=== PATIENT | female | born 1980 | race African-American/Black ===

== ENCOUNTER 2017-03-22 13:38 | Emergency (ER) | payer OTHER ==
[~2017-03-22] VITALS: Ht 152.4 cm; Wt 81.7 kg
[2017-03-22 14:09] LABS: URINE BILIRUBIN NEGATIVE (Negative); URINE BLOOD 3+ (Negative); URINE COLOR YELLOW; URINE GLUCOSE-RANDOM* NEGATIVE (Negative); URINE KETONES NEGATIVE (Negative); URINE NITRITE NEGATIVE (Negative); URINE PROTEIN (DIPSTICK) TRACE (Negative); URINE SPECIFIC GRAVITY >= 1.030 (1.003-1.035); URINE UROBILINOGEN 0.2 E.U./dl (0.2-1.0)
[2017-03-22 14:14] LABS: BACTERIA >30 Many /HPF (None Seen); SQUAMOUS >10 Many /LPF (0-3); URINE RBC >20 Many /HPF (0-2); URINE WBC 6-15 Few /HPF (0-5)
[2017-03-22 14:15] LABS: CASTS None Seen /LPF (None Seen); CRYSTALS None Seen /LPF (None Seen)
[2017-03-22] MEDS ORDERED: CIPRO500 MG PO (14:50)
[2017-03-22] MEDS ORDERED: MOBIC7.5 MG PO (16:21)
[2017-03-22] MEDS ORDERED: PHENAZOPYRIDIN200 M2 PO (16:21)
[2017-03-22 16:41] VITALS: BP 129/73
== END 2017-03-22 16:41 | disposition home or self-care (01) ==
LOC: ER 13:38
PROVIDERS: Nurse Practitioner Family
DX: D25.9 Leiomyoma of uterus, unspecified (principal); N39.0 Urinary tract infection, site not specified; N32.89 Other specified disorders of bladder

== ENCOUNTER 2017-08-01 02:00 | Emergency (ER) | payer OTHER ==
[~2017-08-01] VITALS: Ht 152.4 cm; Wt 92.1 kg
[~2017-08-01 02:00] MED LIST: CIPRO500 MG PO; MOBIC7.5 MG PO; PHENAZOPYRIDIN200 M2 PO
[2017-08-01] MEDS ORDERED: PRENATAL PO (02:20)
[2017-08-01 02:26] LABS: URINE BILIRUBIN NEGATIVE (Negative); URINE BLOOD NEGATIVE (Negative); URINE COLOR YELLOW; URINE GLUCOSE-RANDOM* NEGATIVE (Negative); URINE KETONES NEGATIVE (Negative); URINE NITRITE NEGATIVE (Negative); URINE PROTEIN (DIPSTICK) NEGATIVE (Negative); URINE SPECIFIC GRAVITY 1.015 (1.003-1.035); URINE UROBILINOGEN 0.2 E.U./dl (0.2-1.0)
[2017-08-01 02:37] LABS: HEMATOCRIT 32.3 % (37.0-47.0); HEMOGLOBIN 9.9 gm/dL (12.0-15.0); MCHC 30.7 g/dL (28.0-37.0); MCV 74.8 fL (80.0-100.0); PLATELET COUNT 319 thou/uL (150-400); RBC 4.32 mil/uL (4.20-5.00); RDW 20.1 % (10.5-14.5)
[2017-08-01 02:41] LABS: MANUAL DIFF YES; POTASSIUM 3.9 mmol/L (3.5-5.1)
[2017-08-01 02:47] LABS: CALCIUM 9.7 mg/dL (8.5-10.1); CREATININE 0.7 mg/dL (0.6-1.0)
[2017-08-01 03:13] LABS: ANISOCYTOSIS 3+; TOTAL CELL COUNT 100
[2017-08-01 03:14] LABS: LARGE PLATELETS RARE; MACROCYTES 1+; MICROCYTES 2+; OVALOCYTES OCCASIONAL
[2017-08-01] MEDS ORDERED: PRENATAL COMPL1 EACH PO (03:57)
[2017-08-01 04:03] VITALS: BP 133/64
[2017-08-03 14:09] LABS: CHLAMYDIA TRACHOMATIS-PCR Negative (Negative); NEISSERIA GONORRHEA-PCR Negative (Negative)
== END 2017-08-01 04:05 | disposition home or self-care (01) ==
LOC: ER 02:00
PROVIDERS: Emergency Medicine
DX: O26.891 Other specified pregnancy related conditions, first trimester (principal); R10.32 Left lower quadrant pain; F10.99 Alcohol use, unspecified with unspecified alcohol-induced disorder; Z3A.01 Less than 8 weeks gestation of pregnancy